=== PATIENT | male | born 1970 | race Caucasian/White ===

== ENCOUNTER 2022-07-09 17:56 | Emergency (ER) | payer OTHER, SELFPAY ==
[2022-07-09 18:11] VITALS: BP 132/75; PULSE 81; RESP 16; TEMP 37.4; O2SAT 96
--- NOTE | 2022-07-09 18:19 | ED.GENADUL_ITS ---
Discharge Plan Disposition Patient Disposition: Home Condition: Good Discharge Details Clinical Impression: Acute bacterial sinusitis Primary Care Provider: None,None ED Provider: Misael Moon [place] Meds and New Rx's Prescriptions: New fluticasone propionate [Flonase Allergy Relief] 50 mcg/actuation spray,suspension 1 spray intranasal BID Qty: 16 0RF Rx Instructions: administer into each nostril amoxicillin-pot clavulanate 875-125 mg tablet 1 tab PO BID Qty: 14 0RF Discharge Instructions Instructions: Sinusitis (ED) Additional Instructions: You presented to the ED with sinus complaints that have been present for over 2 weeks and worsening. History and exam consistent with bacterial sinusitis. We will start you on Augmentin. You should also use steroid nasal drops and may use [id number] pseudoephedrine to help with congestion. You may use acetaminophen or ibuprofen for discomfort. Follow-up with primary care 1 to 2 weeks for recheck. Return to ED for shortness of breath, chest pain, severe worsening headache, mental status change, other concerns. Medical Decision Making 51-year-old male with no significant past medical history presents with over 2- week history of worsening sinus pain, pressure, purulent discharge. He has pretty significant tenderness frontal and bilateral maxillary sinuses. Very swollen and erythematous nasal turbinates. Cobblestoning present in the posterior oropharynx. Will presume bacterial sinusitis and started on antibiotics. Augmentin given here. We will also start nasal steroids, pseudoephedrine for congestion. Follow-up with primary care 1 to 2 weeks. Return to ED for worsening headache, difficulty breathing, mental status change, other concerns. HPI General Mode of arrival: ambulatory . Date/Time Provider Initiated Documentation: 07/09/22 18:19 . Limitations to Documentation: no limitations . Information obtained by: patient . HPI Narrative: Patient presents to ED with complaint of thick green nasal discharge, facial pressure, plugged ears for over 2 weeks. He reports a persistent cough since coming down with flulike illness back in April. Although symptoms resolved except for the cough which still persists. Came down with a head cold few weeks ago. Thought he was getting better and then got continually worse with green discharge, worsening facial pain. He has not had fever as of recent. He does not have chest pain or shortness of breath. He does not smoke. Related Data Home Medications Medication Instructions Recorded Confirmed amoxicillin 875 mg-potassium 1 tab PO BID #14 tabs 07/09/22 clavulanate 125 mg tablet fluticasone propionate 50 1 spray intranasal BID #16 grams 07/09/22 mcg/actuation nasal spray,suspension (Flonase Allergy Relief) Previous Rx's Medication Instructions Recorded amoxicillin 875 mg-potassium 1 tab PO BID #14 tabs 07/09/22 clavulanate 125 mg tablet fluticasone propionate 50 1 spray intranasal BID #16 grams 07/09/22 mcg/actuation nasal spray,suspension (Flonase Allergy Relief) Allergies Allergy/AdvReac Type Severity Reaction Status Date / Time codeine AdvReac Unknown pt unsure Unverified 02/07/17 15:49 if true allergy General Stated Complaint: RespSymp ROSAURA: 3 Review of Systems Narrative: As per HPI PFSH All Active Problems (Updated 07/09/22 @ 18:41 by Misael Moon MD) Acute bacterial sinusitis (Acute) Medical History No significant past medical history Social History Smoking/Tobacco Use Status: Never Smoking risk assessment performed?: Yes Do you feel safe at home: Yes Do you feel safe in your relationship?: Yes Exam Narrative Exam Narrative: Const: WDWN male in NAD. HEENT: NC/AT. Normal facial exam. TMs clear with mild erythema and fluid on right. Frontal and bilateral maxillary sinus tenderness. Nasal turbinates swollen and red. OP with cobble stoning posteriorly. Eyes: Normal conjunctiva and sclera. Neck: Supple. Trachea midline. Shotty cervical adenopathy. Lungs: Normal respiratory effort. Lungs are clear. Cor: RRR without murmur/gallop. Neuro: A+O x 3. Normal speech, mentation, gait. Cranial nerves II - XII grossly intact. No gross motor or sensory deficit. Skin: Warm and dry without rash. Course Vital Signs Vital signs: Vital Signs Temperature 99.3 F 07/09/22 18:11 Pulse 81 07/09/22 18:11 Respiratory Rate 16 07/09/22 18:11 Blood Pressure 132/75 07/09/22 18:11 Pulse Oximetry 96 07/09/22 18:11 Temperature 99.3 F 07/09/22 18:11 Temperature Source Temporal Artery Scan 07/09/22 18:11 Pulse 81 07/09/22 18:11 Respiratory Rate 16 07/09/22 18:11 Respiratory Effort 07/09/22 18:16 Blood Pressure 132/75 07/09/22 18:11 Blood Pressure Position Sitting 07/09/22 18:11 Pulse Oximetry 96 07/09/22 18:11 Oxygen Delivery Method Room Air 07/09/22 18:11 Oxygen Flow Rate 0 07/09/22 18:11 Pain Level 6 07/09/22 18:11 PAWSS Have you Been Recently Intoxicated or Drunk Within the Last 30 days?: No Have you Ever Experienced Previous Episodes of Alcohol Withdrawal?: No Have you ever Experienced Withdrawal Seizures?: No Have you ever Experienced Delirium Tremens(DT)s?: No Have you ever undergone Alcohol Rehabilitation Treatment (i.e, inpt ot outpatient treatment programs)?: No Have you ever Experienced Blackouts?: No Have you ever Combined Alcohol with other Downers within the last 90 days?: No Have you ever Combined Alcohol with any other Substance of Abuse during the last 90 days?: No Positive Blood Alcohol level on Presentation? [PCS.BAL]: No Evidence of Increased Autonomic Activity (i.e. HR>120, tremor, sweating, agitation, nausea)?: No Result: 0
[2022-07-09] MEDS: Amoxicillin 875/Clav. 125 TAB PO (18:39)
--- NOTE | 2022-07-10 14:15 | NUR.NOTE ---
Nursing Note: [facility] called stating that [facility] to [facility] by [facility]. Would we [facility] to the [facility] so that they can be filled and mailed out today. We would need to put a comment on the prescription that they are needed JOLIE. I called the [facility] and spoke with client support administrator drywall professional Steve and asked about the pharmacy. He said that the outpatient pharmacy was not open to fill prescriptions. We could do a weekend supply to [facility] that the patient would be responsible for and then the rest electronic to the [facility]. I called the patient back gave him this information, he stated it was not the information that he was given. I told him that with [facility] the fluticasone would be $7.64 and the augmentin $12.04. He stated he did not have any money or gas to pick it up. I gave him the phone number to the [facility] to call and talk to the client support administrator drywall professional to get what he needs for information regarding the prescriptions.
== END 2022-07-09 18:50 | disposition home or self-care (01) ==
PROVIDERS: Emergency Provider Emergency Medicine
DX: J01.80 Other acute sinusitis (principal)
CPT/HCPCS: 99283

== ENCOUNTER 2024-04-19 23:35 | Emergency (ER) | payer OTHER, SELFPAY ==
--- NOTE | 2024-04-19 23:30 | RT.EKG_ITS ---
APPROVED REPORT Exam: Resting ECG Reason for Exam: passed out Patient Location: E HR:49 bpm ECG Measurements Heart Rate 49 AXIS NM 190 P 13 QRSd 129 QRS 82 QT 466 T 53 QTc 419 Conclusion Slow sinus arrhythmia...V-rate 36- 58, mean< 60 IVCD, consider RBBB...QRSd>120mS, terminal axis(90,270) ST elev, probable normal early repol pattern...ST elevation, age<55 Sinus Benjamin with IVCD/RBBB appearance Normal [place] Normal ST Normal QTc
--- NOTE | 2024-04-19 23:39 | W.ED.GENAD ---
Discharge Plan Disposition Patient Disposition: Home Condition: Stable Discharge Details Clinical Impression: Syncope, Bradycardia, sinus Primary Care Provider: None,None ED Provider: Misael Moon Discharge Instructions Instructions: Bradycardia, Fainting, Adult ED Additional Instructions: You were seen in the ED after a syncopal event at home. Your heart rate has been slow during your entire time here monitoring but there were no arrhythmias or pauses detected. Your laboratory studies are reassuring. Will continue outpatient Holter monitoring over the next 48 hours. Please follow-up with your primary care at the [facility] this coming week. Return to the ED at once if further syncope, near syncope, neurologic change, chest pain, shortness of breath, other concerns. Referrals: [facility] [Outside] HPI General Mode of arrival: ambulatory. Date/Time Provider Initiated Documentation: 04/19/24 23:39. Limitations to Documentation: no limitations. Information obtained by: patient, family and RN notes reviewed. HPI Narrative: Patient presents to ED after syncopal event at home. Patient has no significant past medical history. Reports that he became lightheaded and nauseated during a neck massage. does report that she was massaging front and back of neck. Patient states that he was feeling lightheaded before she began doing a front neck massage. reports that he lost consciousness but his eyes remained open. He was completely unresponsive for a minute or 2. He did not fall or have any trauma. He was extremely pale and diaphoretic. She drove him here to the ED. He did have an episode of emesis on arrival. He denies any type of chest pain or pressure. He denies any neurologic change. He denies any recent illness. He reports a syncopal event in the distant past but does not have recurrent history of same. Related Data Allergies Allergy/AdvReac Type Severity Reaction Status Date / Time codeine AdvReac Unknown pt unsure Unverified 02/07/17 15:49 if true allergy General ROSAURA: 3 Review of Systems Narrative: Per HPI Exam Narrative Exam Narrative: Const: WDWN male in NAD, but ashen color. VS per triage. HEENT: NC/AT. Normal facial exam. Neck: Supple. Trachea midline. Lungs: Normal respiratory effort. Lungs are clear. Cor: RRR without murmur. Good radial pulses. GI: Soft/ND/NT. Neuro: A+O x 3. Normal speech, mentation, gait. Cranial nerves II - XII grossly intact. No gross motor or sensory deficit. Ext: No C/C/E. Medical Decision Making Patient presenting to ED after syncopal event at home in the setting of getting a neck massage. Patient began having symptoms prior to his moving to the anterior portion of his neck. He did have prodromal symptoms and this may have been vagal related. However, on arrival he is still ashen color and bradycardic. His EKG shows sinus bradycardia at 49 with intraventricular conduction delay, right bundle in nature. No ST changes. Normal axis present. Normal QT. 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 He has no significant past medical history. He is not on medications. Will remain on monitor. Will obtain laboratory studies including serial troponins. Will push oral fluids and reevaluate. 02:00 - Labs look fine, mild anemia only. Initial troponin less than 4. Continues to have heart rate that is mostly in the 50s, sinus bradycardia. Occasionally drops into the high 40s and reaches the upper 60s. Blood pressures running 90-100 systolically. He has had no complaints. Will monitor till morning, obtain a repeat troponin now and repeat EKG around 6 AM. 06:24 - Patient has remained bradycardic in the 50s overnight. Again an occasional dip into the 40s. No further symptoms here. Repeat troponin flat. Repeat EKG is unchanged from last night. Quite likely a vagal event related to the neck massage he was getting. Will ask for Holter monitor for 48 hours to be placed prior to discharge. Will have him follow-up with primary care at the [facility] this coming week. Return precautions provided. Lab Data Lab results reviewed: Yes I reviewed the patient's lab results. Lab results narrative: See [facility] ECG Data Attestation: I personally reviewed and interpreted this ECG (s) as follows: Prior ECG tracings: not available for review Interpretation: See [facility]/EKG [facility] All Active Problems (Updated 04/20/24 @ 06:29 by Misael Moon MD) Bradycardia, sinus (Acute) Syncope (Chronic) Medical History No significant past medical history Social History Smoking/Tobacco Use Status: Never Smoking risk assessment performed?: Yes Alcohol Intake: current Alcohol Intake frequency: holidays/special occasions only Substance use type: does not use Do you feel safe at home: Yes Do you feel safe in your relationship?: Yes
[2024-04-19 23:42] VITALS: BP 102/56; PULSE 53; RESP 18; TEMP 35.8; O2SAT 99
[2024-04-19 23:46] VITALS: RESP 18
[2024-04-19 23:54] VITALS: BP 122/64; PULSE 48; PULSE 58; RESP 16; O2SAT 99
[2024-04-19 23:55] VITALS: PULSE 56; RESP 16; O2SAT 97
[2024-04-20] VITALS (66 sets, daily range): BP systolic 82–114; BP diastolic 38–83; PULSE 42–82; RESP 8–22; TEMP 36.9; O2SAT 93–100
[2024-04-20 00:10] LABS: Abs Immature Grans 0.02 10^3/uL (0.0-0.06); Absolute Basophil Count 0.04 10^3/uL (0.0-0.2); Absolute Eosinophil Count 0.38 10^3/uL (0.0-0.7); Absolute Lymphocyte Count 1.74 10^3/uL (1.2-3.4); Absolute Monocyte Count 0.55 10^3/uL (0.1-0.8); Absolute Neutrophil Count 3.52 10^3/uL (1.2-6.7); Basophils % 0.6 %; Eosinophils % 6.1 %; HCT 38.6 % (40.0-50.0); Immature Grans % 0.3 %; Lymphocytes % 27.8 %; MCH 30.8 pg (27.0-33.0); MCHC 33.7 % (32.0-36.0); MCV 92 fL (80-95); MPV 9.5 fL (8.0-11.0); Monocytes % 8.8 %; Neutrophils % 56.4 %; Platelet Count 188 10^3/uL (130-400); RBC 4.22 10^6/uL (4.36-5.78); RDW 12.4 % (11.8-14.1); RDW-SD 41.2 fL; WBC 6.25 10^3/uL (4.4-10.8)
[2024-04-20 00:33] LABS: ALT 27 U/L (16-63); AST 19 U/L (15-37); Albumin 4.1 g/dL (3.4-5.0); Alkaline Phosphatase 75 U/L (46-116); Anion Gap 8.4 mmol/L (3-11); BUN 17 mg/dL (7-18); CO2 28.6 mmol/L (21.0-32.0); Calcium 8.7 mg/dL (8.5-10.1); Chloride 103 mmol/L (98-107); Glucose 109 mg/dL (74-106); Magnesium 2.1 mg/dL (1.8-2.4); Potassium 3.8 mmol/L (3.5-5.1); Sodium 140 mmol/L (136-145); Total Protein 7.1 g/dL (6.4-8.2); Troponin I < 4 ng/L (<or=76)
[2024-04-20 02:31] LABS: Troponin I 4 ng/L (<or=76)
--- NOTE | 2024-04-20 06:00 | RT.EKG_ITS ---
APPROVED REPORT Exam: Resting ECG Reason for Exam: syncope Patient Location: E HR:50 bpm ECG Measurements Heart Rate 50 AXIS GA 181 P 49 QRSd 125 QRS 76 QT 468 T 56 QTc 427 Conclusion Sinus bradycardia...rate< 60 IVCD, consider RBBB...QRSd>120mS, terminal axis(90,270) ST elev, probable normal early repol pattern...ST elevation, age<55 There are no significant changes compared to prior EKG performed on 04/19/2024 at 23:38.
--- NOTE | 2024-04-20 08:15 | ED.PROG_ITS ---
Date of service: 04/20/24 Time of Service: 08:15 Medical Decision Making unable to get holter from [facility] today. they anticipate one being early next week. Advised patient to contact his PCP at [place] to see if one is available. Patient understands return precautions. Quality:SDOH Health Related Social Needs: No Data to Display Discharge Plan Disposition Patient Disposition: Home Condition: Stable Discharge Details Clinical Impression: Syncope, Bradycardia, sinus Primary Care Provider: None,None ED Provider: Misael Moon Home Meds and New Rx's Prescriptions: No Action No Known Home Meds Discharge Instructions Instructions: Bradycardia, Fainting, Adult ED Additional Instructions: You were seen in the ED after a syncopal event at home. Your heart rate has been slow during your entire time here monitoring but there were no arrhythmias or pauses detected. Your laboratory studies are reassuring. Will continue outpatient Holter monitoring over the next 48 hours. Please follow-up with your primary care at the [facility] this coming week. Return to the ED at once if further syncope, near syncope, neurologic change, chest pain, shortness of breath, other concerns. They will contact you when the holter is available Please contact your PCP today and see if a holter monitor is available through the [place] system. Referrals: [facility] [Outside]
== END 2024-04-20 08:28 | disposition home or self-care (01) ==
PROVIDERS: Emergency Provider Emergency Medicine
DX: R55 Syncope and collapse (principal); R00.1 Bradycardia, unspecified
CPT/HCPCS: 00123; 36416; 80053; 82962; 93005; 99283; 83735; 84484; 85025; 93010; 93225; 93226